=== PATIENT | male | born 1965 | race Caucasian/White ===

== ENCOUNTER 2021-07-30 23:46 | Emergency (ER) | payer MEDICAID ==
[~2021-07-30] VITALS: Ht 180.3 cm; Wt 97.5 kg
[2021-07-31 00:08] VITALS: BP_SYST 120
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
--- NOTE | 2021-07-31 01:44 | NUR ---
JOHN Poe at bedside examining patient.
--- NOTE | 2021-07-31 01:50 | NUR ---
Patient to ER bed 4 to gown for evaluation. Side rails up.
[2021-07-31] MEDS ORDERED: OXYCODONE/ACETAMINOPHEN 5-325 TABLET PO ONE (02:30)
[2021-07-31] MEDS ORDERED: LIDOCAINE 2%, 20 ML MDV INJ ONE (02:30)
[2021-07-31] MEDS ORDERED: IBUP-1969 PO (03:22)
[2021-07-31] MEDS ORDERED: HYDR-3927 PO (03:22)
[2021-07-31] MEDS ORDERED: AMOX-423 PO (03:22)
[2021-07-31] MEDS ORDERED: AMOXICILLIN/CLAVULANATE POTASSIUM 500 MG TABLET PO ONE (03:30)
--- NOTE | 2021-07-31 04:11 | NUR ---
(Daylight Saving time) : Patient has a 1.5 cm laceration to lower lip. Dr. Garcia applied sutures using sterile technique. Edges well approximated. Site cleansed with NSS + Betadine. No bleeding noted. Pt tolerated well.
[2021-07-31] MEDS ORDERED: BACITRACIN 1 GM OINT TP ONE ×2 (04:45→05:42)
[2021-07-31 05:19] VITALS: BP_SYST 120
--- NOTE | 2021-07-31 05:19 | NUR ---
(Daylight Saving time) : Patient given written and verbal discharge instructions and verbalizes understanding. ER MD discussed with patient the results and treatment provided. Patient in stable condition. ID arm band removed. Rx of Augmentin, [place] and Ibuprofen given. Patient educated on pain management and to follow up with PMD. Pain Scale 1/10. Opportunity for questions provided and answered. Medication side effect fact sheet provided.
[2021-07-31] MEDS ORDERED: AMOXICILLIN/CLAVULANATE POTASSIUM 500 MG TABLET ONE (05:41)
== END 2021-07-31 05:19 | disposition home or self-care (01) ==
LOC: SED 23:46
DX: S01.511A Laceration without foreign body of lip, initial encounter (principal); S16.1XXA Strain of muscle, fascia and tendon at neck level, initial encounter; F07.81 Postconcussional syndrome; Z79.899 Other long term (current) drug therapy; Y04.0XXA Assault by unarmed brawl or fight, initial encounter; Y93.89 Activity, other specified; Y92.89 Other specified places as the place of occurrence of the external cause; Y99.8 Other external cause status
CPT/HCPCS: 12011; 70450; 70486; 71045; 72125; 76376; 99284; J2001